=== PATIENT | male | born 1970 | race Hispanic/Latino ===

== ENCOUNTER 2024-09-25 08:13 | Inpatient (IN) | payer OTHER ==
[2024-09-25 08:34] LABS: #Basophils 0.08 10x3/uL (0.0-0.2); %Basophils 0.7 % (0.0-1.0); %Eosinophils 0.9 % (0.0-10.0); %Monocytes 6.4 % (0.0-10.0); %Neutrophils 78.7 % (42.0-75.0); Hematocrit 49.5 % (42.0-52.0); Hemoglobin 16.5 g/dL (14.0-18.0); Mean Corpuscular HGB CONC 33.3 g/dL (32.0-36.0); Mean Corpuscular Hemoglobin 27.6 pg (27.0-31.0); Mean Corpuscular Volume 82.9 fL (78.0-98.0); Mean Platelet Volume 11.1 fL (7.4-10.4); Platelet Count 180 10x3/uL (130-400); RBC Distribution Width 12.9 % (11.5-14.5); Red Blood Cell (RBC) Count 5.97 mill/uL (4.70-6.10)
[2024-09-25] MEDS ORDERED: Ondansetron PF 4 MG/2 ML Vial ONE ×2 (08:39→16:22)
[2024-09-25] MEDS ORDERED: Morphine 4 MG/ML VIAL ONE (08:39)
[2024-09-25 08:49] LABS: ALT (SGPT) 36 U/L (8-55); AST (SGOT) 30 U/L (5-34); Albumin 3.9 g/dL (3.5-5.0); Alkaline Phosphatase 85 U/L (40-110); Anion Gap 13 mmol/L (10-20); BUN (Urea Nitrogen) 12 mg/dL (8.4-25.7); Bilirubin, Total 0.8 mg/dL (0.2-1.2); Calc. Creatinine Clearance 0 mL/min (70-130); Calcium 9.1 mg/dL (7.8-10.44); Carbon Dioxide 22 mmol/L (22-29); Chloride 107 mmol/L (98-107); Estimated GFR 106; Globulin 3.4 g/dL (2.4-3.5); Glucose 232 mg/dL (70-105); Potassium 3.9 mmol/L (3.5-5.1); Protein, Total 7.3 g/dL (6.0-8.3); Sodium 138 mmol/L (136-145)
[2024-09-25] MEDS ORDERED: fentaNYL 50 mcg/mL 1 mL Vial ONE ×2 (11:05→19:21)
[2024-09-25] MEDS ORDERED: CEFAZOLIN 2 GM in Sodium Chloride 0.9% 100 ML IVPB SCH (11:15)
[2024-09-25] MEDS ORDERED: Dextrose 5% in Water 1,000 ML IV PRN (11:51)
[2024-09-25] MEDS ORDERED: traMADol HCl 50 MG TAB PO PRN ×2 (11:51→18:34)
[2024-09-25] MEDS ORDERED: Morphine 2 MG/ML VIAL SLOW IVP PRN (11:51)
[2024-09-25] MEDS ORDERED: Glucagon 1 MG/ML KIT IM PRN (11:51)
[2024-09-25] MEDS ORDERED: Insulin Regular, Human 100 UNIT/ML 10 ML VIAL SC PRN (11:51)
[2024-09-25] MEDS ORDERED: Ondansetron PF 4 MG/2 ML Vial IVP PRN (11:51)
[2024-09-25] MEDS ORDERED: Dextrose 50% Abboject 50 ML SYRINGE SLOW IVP PRN (11:51)
[2024-09-25] MEDS ORDERED: Boostrix 0.5 ML (Tdap) VIAL (>/=7 yrs of age) ONE (12:02)
[2024-09-25 13:58] VITALS: BMI 33.9
[2024-09-25] MEDS ORDERED: Dexamethasone 4 mg/ml Vial ONE (16:22)
[2024-09-25] MEDS ORDERED: fentaNYL PF 100 MCG/2 ML SYRINGE ONE (16:22)
[2024-09-25] MEDS ORDERED: Lidocaine 1% PF 5 ML VIAL ONE (16:22)
[2024-09-25] MEDS ORDERED: PROPOFOL 40 ML ONE (16:25)
[2024-09-25] MEDS ORDERED: CEFAZOLIN 2 GM VIAL ONE (17:17)
[2024-09-25] MEDS ORDERED: Methocarbamol 500 MG TAB PO PRN (18:34)
[2024-09-25] MEDS ORDERED: HYDROmorphone 0.5 MG/0.5 ML SYRINGE ONE (20:01)
[2024-09-25] MEDS: Acetaminophen 325 MG TAB PO SCH ×2 (21:39→23:33)
[2024-09-25] MEDS: CEFAZOLIN 2 GM in Sodium Chloride 0.9% 100 ML IVPB SCH (21:43)
[2024-09-25] MEDS: traMADol HCl 50 MG TAB PO SCH (23:34)
[2024-09-26 05:38] LABS: #Basophils 0.04 10x3/uL (0.0-0.2); #Eosinophils Less than 0.03 10x3/uL (0.0-0.7); %Basophils 0.3 % (0.0-1.0); %Lymphocytes 7.2 % (21.0-51.0); %Monocytes 9.6 % (0.0-10.0); %Neutrophils 82.4 % (42.0-75.0); Hematocrit 47.1 % (42.0-52.0); Hemoglobin 15.6 g/dL (14.0-18.0); Mean Corpuscular HGB CONC 33.1 g/dL (32.0-36.0); Mean Corpuscular Volume 84.4 fL (78.0-98.0); Mean Platelet Volume 11.2 fL (7.4-10.4); Platelet Count 201 10x3/uL (130-400); Red Blood Cell (RBC) Count 5.58 mill/uL (4.70-6.10)
[2024-09-26 05:57] LABS: Anion Gap 13 mmol/L (10-20); BUN (Urea Nitrogen) 11 mg/dL (8.4-25.7); Calc. Creatinine Clearance 174 mL/min (70-130); Calcium 8.6 mg/dL (7.8-10.44); Carbon Dioxide 22 mmol/L (22-29); Chloride 106 mmol/L (98-107); Estimated GFR 112; Glucose 204 mg/dL (70-105); Potassium 3.9 mmol/L (3.5-5.1); Sodium 137 mmol/L (136-145)
[2024-09-26 15:55] VITALS: BP 145/78; TEMP 98
[2024-09-29] MEDS ORDERED: FLU (Fluarix Triv) TS24-25(6MOS UP)/PF 45 MCG/0.5 ML Syringe IM ONE (09:00)
== END 2024-09-26 17:15 | disposition home or self-care (01) | DRG 512 ==
LOC: ERS 08:13 → ERHOLD 10:13 → SURG A 15:00 → SURG B 19:16
PROVIDERS: ADMIT Specialist; ATTEND Specialist
PROC: 0PSL04Z Reposition Left Ulna with Internal Fixation Device, Open Approach (ICD-10-PCS; principal; 2024-09-25)
DX: S52.022A Displaced fracture of olecranon process without intraarticular extension of left ulna, initial encounter for closed fracture (principal); V89.2XXA Person injured in unspecified motor-vehicle accident, traffic, initial encounter; E11.9 Type 2 diabetes mellitus without complications; E78.5 Hyperlipidemia, unspecified; Z79.84 Long term (current) use of oral hypoglycemic drugs; Z79.891 Long term (current) use of opiate analgesic; Z79.899 Other long term (current) drug therapy
CPT/HCPCS: 36415; 36416; 70450; 71045; 72125; 80048; 80053; 85025; 86850; 86900; 86901; 90471; 90715; 96374; 96375; C1713; G0390; J1100; J2272; J2405; J2704; J3010